=== PATIENT | male | born 1995 | race Caucasian/White ===

== ENCOUNTER 2024-05-04 17:55 | Emergency (ER) | payer OTHER, SELFPAY ==
--- NOTE | 2024-05-04 18:24 | ED.GENMED ---
History of Present Illness
General
Chief Complaint: Musculo-Skeletal Complaint
Source: patient
Time Seen by Provider: 05/04/24 18:01
History of Present Illness
History of Present Illness:
28-year-old male presenting to the emergency department for evaluation after injuring his left index finger while playing basketball with obvious deformity. Patient is right-hand dominant. No other injuries were sustained.
Past History
Past History
ED Past Medical History: None
ED Past Surgical History: None
Social History
Tobacco: Non-smoker
Alcohol: Occasional
Drug: None
Personal:
Living: with family
Review of Systems
Review of Systems
All Other Systems: ROS reviewed and negative except as documented in HPI and ROS
Phy Exam
Physical Exam
Physical Exam:
GENERAL: Alert , in no apparent distress
EYE: conjunctiva clear
Head: Normocephalic atraumatic
NECK: Supple,
ENT: mmm.
LUNGS: no acute respiratory distress
NEUROLOGICAL: Alert and oriented
SKIN: Warm and dry, skin intact.
MUSCULOSKELETAL: Deformity at the DIP of the left index finger. Extremities otherwise warm and well-perfused. No breaks in the skin
PSYCH: Normal and appropriate interaction.
Scores
Heart Failure Risk
Heart Failure Risk Score: Not Applicable
Heart Score for Chest Pain Patients
STEMI patient?: Not applicable
Withdrawal Assessment of Alcohol
Withdrawal Assessment Completed?: Not applicable
Course
Orders/Labs/Results
Orders:
Orders
05/04/24 18:01
CR Hand - Left Min 3 Views Urgent
Comment:
Reason For Exam: left index finger injury
05/04/24 18:35
Hand, Left 3 View [CR Hand - Left Min 3 Views] Urgent
Comment:
Reason For Exam: post reduction left index finger
05/04/24 18:50
Splints/Slings/Crut- Treatment ONCE
Location: Left
Type of Splint: Aluminum Finger Splint
Comment: left index finger
Vital Signs
Initial and Last Documented VS:
Initial Vital Signs
Temp Pulse Resp Pulse Ox
97.7 F 65 18 98
05/04/24 18:00 05/04/24 18:00 05/04/24 18:00 05/04/24 18:00
Last Documented Vital Signs
Temp Pulse Resp Pulse Ox
97.7 F 65 18 98
05/04/24 18:00 05/04/24 18:00 05/04/24 18:00 05/04/24 18:00
Procedures
Joint/Fracture Reduction
Left Second Finger:
Indication for procedure:: Dislocation
Procedure completed by: Yadira
Joint reduced: without anesthesia
Anesthesia/sedation: Regional block
Injury was: closed
Further treatement: no treatment needed
Post reduction exam: stable
Capillary Refill: normal
Normal distal neurovascular exam?: Yes
MDM/Problems Addressed
Differential Diagnosis Includes:
Dislocation, subluxation, fracture
MDM/Problems Addressed:
28-year-old male presenting to the ER for evaluation of suspected left index finger PIP joint dislocation. X-ray performed confirms suspicion. Reduction performed as above without any difficulty. Reduction film obtained which showed successful
reduction without fracture. Patient placed in finger splint. Given information for orthopedics to follow-up. Stable for discharge home.
*Radiology
Radiology exam reviewed: preliminary read by ED provider (PIP joint dislocation)
*Pulse Oximetry
Patient hypoxic: no
*Critical Care Note
Total Time (30-74mins, 75-104mins- exclusive of procedures): Not Applicable
ED Attending Note
-
Portions of this chart may have been created with voice recognition software.� Occasional wrong word or��sound alike� substitutions may have occurred due to the inherent limitations of voice recognition software.
Discharge Plan
Departure
Patient Disposition: Home (Routine Discharge)
Date of Disposition: 05/04/24
Time of Disposition: 18:40
Patient with high blood pressure during this ER visit?: No
Discharge Problem:
Closed traumatic dislocation of proximal interphalangeal (PIP) joint of left index finger
Instructions: Finger Dislocation (DC)
Referrals:
Jordan Dawson MD [Active] - (Ortho - as needed)
Interventions
Interventions:
*Risk Screen - Suicide Last Done: 05/04/24 18:28
*General Assessment Last Done: 05/04/24 18:28
*Neglect/Abuse Screening Last Done: 05/04/24 18:28
ED- Fall Risk Assessment Last Done: 05/04/24 18:28
*ED COVID-19 Vaccine History Last Done: 05/04/24 18:28
*Nursing Disposition Last Done: 05/04/24 18:55
ED-Musculoskeletal Assessment Last Done: 05/04/24 18:28
Discharge Date and Time
Discharge Date/Time: 05/04/24 19:00
Print Language: URDU
--- NOTE | 2024-05-04 18:54 | EDRN ---
Reviewed discharge instructions with patient. Verbalized understanding.
== END 2024-05-04 19:00 | disposition home or self-care (01) ==
LOC: EMR 17:55
PROVIDERS: EMERGENCY PHYSICIAN Student in an Organized Health Care Education/Training Program; FAMILY PHYSICIAN Family Medicine
DX: S63.281A Dislocation of proximal interphalangeal joint of left index finger, initial encounter (principal); X58.XXXA Exposure to other specified factors, initial encounter; Y93.67 Activity, basketball
CPT/HCPCS: 26770; 99283; 73130